=== PATIENT | male | born 1945 | race Caucasian/White ===

== ENCOUNTER → 2017-04-30 | Outpatient (REF) | payer MEDICARE ==
[2017-04-30 17:28] LABS: CALCIUM LEVEL 8.9 MG/DL (8.8-10.2); CREATININE FOR GFR 1.31 MG/DL (0.70-1.30); GLOMERULAR FILTRATION RATE 56.9 (>42); POTASSIUM SERUM 4.2 MEQ/L (3.5-5.1)
== END ==
LOC: M SFHCCLAY 12:26
PROVIDERS: ATTEND Family Medicine
DX: I10 Essential (primary) hypertension (principal)
CPT/HCPCS: 80048; 80061; 84460; G0463

== ENCOUNTER → 2018-04-30 | Outpatient (REF) | payer MEDICARE | LOC: M SFHCCLAY 09:09 | DX: E78.2 Mixed hyperlipidemia (principal); I10 Essential (primary) hypertension; R73.01 Impaired fasting glucose; Z53.8 Procedure and treatment not carried out for other reasons ==

== ENCOUNTER → 2018-05-01 | Outpatient (REF) | payer MEDICARE ==
[2018-05-01 12:03] LABS: ALBUMIN 3.7 GM/DL (3.2-5.2); ALBUMIN/GLOBULIN RATIO 1.19 (1.00-1.93); ALKALINE PHOSPHATASE 53 U/L (45-117); ALT/SGPT 29 U/L (12-78); ANION GAP 7 MEQ/L (8-16); AST/SGOT 14 U/L (7-37); BILIRUBIN,TOTAL 0.9 MG/DL (0.2-1.0); BLOOD UREA NITROGEN 24 MG/DL (7-18); CALCIUM LEVEL 8.8 MG/DL (8.8-10.2); CARBON DIOXIDE LEVEL 28 MEQ/L (21-32); CHLORIDE LEVEL 105 MEQ/L (98-107); CHOLESTEROL LEVEL 168 MG/DL (<200); CHOLESTEROL RISK RATIO 3.111 (<5); CREATININE FOR GFR 1.38 MG/DL (0.70-1.30); GLOMERULAR FILTRATION RATE 53.5 (>42); GLUCOSE, FASTING 119 MG/DL (70-100); HDL CHOLESTEROL 54 MG/DL (>40); LDL CHOLESTEROL 95.2 MG/DL (<100); NON-HDL-C 114 MG/DL; POTASSIUM SERUM 4.6 MEQ/L (3.5-5.1); SODIUM LEVEL 140 MEQ/L (136-145); TOTAL PROTEIN 6.8 GM/DL (6.4-8.2); TRIGLYCERIDES LEVEL 94 MG/DL (<150)
[2018-05-01 12:31] LABS: ESTIMATED AVERAGE GLUCOSE 131 MG/DL (60-110); HEMOGLOBIN A1c 6.2 %
== END ==
LOC: M SFHCCLAY 07:27
DX: I10 Essential (primary) hypertension (principal); R73.01 Impaired fasting glucose (principal); E78.2 Mixed hyperlipidemia
CPT/HCPCS: 84443

== ENCOUNTER → 2018-11-06 | Outpatient (REF) | payer MEDICARE ==
[2018-11-06 12:08] LABS: CALCIUM LEVEL 8.6 MG/DL (8.8-10.2); CREATININE FOR GFR 1.33 MG/DL (0.70-1.30); GLOMERULAR FILTRATION RATE 55.8 (>42); POTASSIUM SERUM 4.8 MEQ/L (3.5-5.1)
== END ==
LOC: M SFHCCLAY 08:14
PROVIDERS: ATTEND Family Medicine
DX: I12.9 Hypertensive chronic kidney disease with stage 1 through stage 4 chronic kidney disease, or unspecified chronic kidney disease (principal)
CPT/HCPCS: 80048; G0463

== ENCOUNTER → 2018-11-20 | Outpatient (REF) | payer MEDICARE ==
[2018-11-20 19:30] LABS: HEMATOCRIT 46.4 % (42.0-52.0); HEMOGLOBIN 15.7 g/dl (13.5-17.5); MEAN CORPUSCULAR HEMOGLOBIN 32.6 pg (27.0-33.0); MEAN CORPUSCULAR HGB CONC 33.8 g/dl (32.0-36.5); MEAN CORPUSCULAR VOLUME 96.3 fl (80.0-96.0); PLATELET COUNT, AUTOMATED 211 10^3/uL (150-450); RED BLOOD COUNT 4.82 10^6/uL (4.30-6.10); WHITE BLOOD COUNT 6.6 10^3/uL (4.0-10.0)
[2018-11-20 20:00] LABS: CALCIUM LEVEL 8.5 MG/DL (8.8-10.2); CREATININE FOR GFR 1.49 MG/DL (0.70-1.30); GLOMERULAR FILTRATION RATE 48.9 (>42); POTASSIUM SERUM 4.3 MEQ/L (3.5-5.1)
== END ==
LOC: M LABDRAWC 19:02
PROVIDERS: ATTEND Internal Medicine Cardiovascular Disease
DX: I48.91 Unspecified atrial fibrillation (principal); I51.7 Cardiomegaly

== ENCOUNTER → 2019-05-08 | Outpatient (REF) | payer MEDICARE | LOC: M SFHCCLAY 07:15 | PROVIDERS: ATTEND Family Medicine | DX: R73.01 Impaired fasting glucose (principal); Z53.8 Procedure and treatment not carried out for other reasons ==

== ENCOUNTER → 2019-05-26 | Outpatient (REF) | payer MEDICARE ==
[2019-05-26 12:08] LABS: CALCIUM LEVEL 8.4 MG/DL (8.8-10.2); CREATININE FOR GFR 1.35 MG/DL (0.70-1.30); GLOMERULAR FILTRATION RATE 54.7 (>42); POTASSIUM SERUM 4.6 MEQ/L (3.5-5.1)
== END ==
LOC: M LABDRAWC 11:21
PROVIDERS: ATTEND Internal Medicine Cardiovascular Disease
DX: I50.9 Heart failure, unspecified (principal)

== ENCOUNTER → 2019-05-26 | Outpatient (REF) | payer MEDICARE ==
[2019-05-26 12:05] LABS: ALBUMIN 3.4 GM/DL (3.2-5.2); BILIRUBIN,TOTAL 1.1 MG/DL (0.2-1.0); CALCIUM LEVEL 8.3 MG/DL (8.8-10.2); CHOLESTEROL RISK RATIO 3.156 (<5); CREATININE FOR GFR 1.37 MG/DL (0.70-1.30); GLOMERULAR FILTRATION RATE 53.8 (>42); POTASSIUM SERUM 4.7 MEQ/L (3.5-5.1); TOTAL PROTEIN 6.4 GM/DL (6.4-8.2)
[2019-05-26 12:06] LABS: HEMOGLOBIN A1c 6.8 %
== END ==
LOC: M SFHCCLAY 07:15
PROVIDERS: ATTEND Family Medicine
DX: R73.01 Impaired fasting glucose (principal); I50.9 Heart failure, unspecified

== ENCOUNTER → 2019-11-12 | Outpatient (REF) | payer MEDICARE ==
[2019-11-12 12:39] LABS: CALCIUM LEVEL 9.1 MG/DL (8.8-10.2); CREATININE FOR GFR 1.42 MG/DL (0.70-1.30); GLOMERULAR FILTRATION RATE 51.6 (>42); POTASSIUM SERUM 4.1 MEQ/L (3.5-5.1); URIC ACID 5.2 MG/DL (3.5-7.2)
[2019-11-12 13:13] LABS: HEMOGLOBIN A1c 6.6 %
[2019-11-12 18:29] LABS: MALB URINE SIEMENS 41.3 MG/L; MAU/CREAT RATIO 18.1 MCG/MG (0.0-30.0)
== END ==
LOC: M SFHCCLAY 07:17
PROVIDERS: ATTEND Family Medicine
DX: E11.9 Type 2 diabetes mellitus without complications (principal); I12.9 Hypertensive chronic kidney disease with stage 1 through stage 4 chronic kidney disease, or unspecified chronic kidney disease; N18.3 Chronic kidney disease, stage 3 (moderate); E79.0 Hyperuricemia without signs of inflammatory arthritis and tophaceous disease

== ENCOUNTER → 2020-05-12 | Outpatient (REF) | payer MEDICARE ==
[~2020-05-12] MED LIST: CARV25TA PO; ENTR1TAB PO; ENTR1TAB4 PO; HYDR-3490 PO; OMEP1CAP73 PO; XARE10TA PO; ZYLO300T6 PO
[2020-05-12 11:41] LABS: HEMATOCRIT 45.8 % (42.0-52.0); HEMOGLOBIN 15.3 g/dl (13.5-17.5); MEAN CORPUSCULAR HEMOGLOBIN 32.1 pg (27.0-33.0); MEAN CORPUSCULAR HGB CONC 33.4 g/dl (32.0-36.5); PLATELET COUNT, AUTOMATED 215 10^3/uL (150-450); RED BLOOD COUNT 4.77 10^6/uL (4.30-6.10); WHITE BLOOD COUNT 5.9 10^3/uL (4.0-10.0)
[2020-05-12 12:08] LABS: ALBUMIN 3.6 GM/DL (3.2-5.2); BILIRUBIN,TOTAL 1.1 MG/DL (0.2-1.0); CALCIUM LEVEL 8.9 MG/DL (8.8-10.2); CHOLESTEROL RISK RATIO 4.615 (<5); CREATININE FOR GFR 1.31 MG/DL (0.70-1.30); GLOMERULAR FILTRATION RATE 56.5 (>42); PHOSPHORUS LEVEL 2.9 MG/DL (2.5-4.9); POTASSIUM SERUM 4.4 MEQ/L (3.5-5.1); TOTAL PROTEIN 6.8 GM/DL (6.4-8.2); URIC ACID 5.7 MG/DL (3.5-7.2)
== END ==
LOC: M SFHCCLAY 09:20
PROVIDERS: ATTEND Family Medicine
DX: I12.9 Hypertensive chronic kidney disease with stage 1 through stage 4 chronic kidney disease, or unspecified chronic kidney disease (principal); E11.9 Type 2 diabetes mellitus without complications; I48.11 Longstanding persistent atrial fibrillation

== ENCOUNTER 2020-07-07 05:55 | Day surgery (SDC) | payer MEDICARE ==
[~2020-07-07] VITALS: Ht 177.8 cm; Wt 82.6 kg
[~2020-07-07 05:55] MED LIST changes: -HYDR-3490 PO; +HYDR25TAB PO
[2020-07-07] MEDS ORDERED: ROCURONIUM BROMIDE 50 MG/5 ML VIAL As Ordered ONE ×2 (07:17→08:22)
[2020-07-07] MEDS ORDERED: propofoL 200 MG/20 ML VIAL As Ordered ONE (07:17)
[2020-07-07] MEDS ORDERED: ONDANSETRON 4MG/2ML VIAL As Ordered ONE ×2 (07:17→09:14)
[2020-07-07] MEDS ORDERED: LIDOCAINE 2% 100MG/5ML SDV (FOR ANES.) As Ordered ONE (07:17)
[2020-07-07] MEDS ORDERED: dexameTHASONE 4 MG/ML 1ML VIAL (J1100 PER 1MG) As Ordered ONE (07:17)
[2020-07-07] MEDS ORDERED: MIDAZOLAM INJ 2MG/2ML VIAL (J2250 PER 1MG) As Ordered ONE (07:18)
[2020-07-07] MEDS ORDERED: fentaNYL 250 MCG/5 ML INJECTION (J3010) As Ordered ONE (07:18)
[2020-07-07] MEDS ORDERED: BUPIVACAINE HCL 0.25% 30ML VIAL As Ordered ONE (07:40)
[2020-07-07] MEDS ORDERED: LIDOCAINE PRES-FREE 2% 10ML AMP As Ordered ONE (08:36)
[2020-07-07] MEDS ORDERED: ACETAMINOPHEN 1000MG 100ML IV BTL (OFIRMEV) (J0131 PER 10MG) As Ordered ONE (09:08)
[2020-07-07] MEDS ORDERED: SUGAMMADEX SODIUM 500 MG/5 ML VIAL (BRIDION) As Ordered ONE (09:11)
[2020-07-07] MEDS ORDERED: HYDROmorphone HCL 2 MG/ML 1ML VIAL (J1170) As Ordered ONE (09:12)
[2020-07-07] MEDS ORDERED: oxyCODONE 5MG TAB As Ordered ONE (10:10)
[2020-07-07] MEDS ORDERED: HYDROMORPHONE HCL 0.5 MG/ 0.5 ML SYRINGE (J1170 PER 1) IV PRN (10:15)
[2020-07-07] MEDS ORDERED: oxyCODONE 5MG TAB PO PRN (10:15)
[2020-07-07] MEDS ORDERED: NORCO, ANEXSIA 5/325MG TABLET (HYDROcodone/ACETAMINOPHEN) PO PRN (10:15)
[2020-07-07] MEDS ORDERED: fentaNYL 100 MCG/2 ML INJECTION (J3010) IV PRN (10:15)
[2020-07-07] MEDS ORDERED: METOCLOPRAMIDE INJ 10MG/2ML VIAL (J2765 PER 1) IV PRN (10:15)
[2020-07-07] MEDS ORDERED: ACETAMINOPHEN TAB 650MG DOSE (2X325MG) PO PRN (10:15)
[2020-07-07] MEDS ORDERED: ONDANSETRON 4MG/2ML VIAL IV PRN (10:15)
[2020-07-07] MEDS ORDERED: MEPERIDINE INJ 25 MG/ML VIAL (J2175) IV PRN (10:15)
[2020-07-07] MEDS ORDERED: LR 1,000 ML IV SCH (10:15)
[2020-07-07 12:56] VITALS: BP 106/55
--- NOTE | 2020-08-26 08:33 | RO ---
DATE OF OPERATION: 07/07/2020 PREOPERATIVE DIAGNOSIS: Left inguinal hernia. POSTOPERATIVE DIAGNOSIS: Indirect left inguinal hernia. PROCEDURE: Robotic-assisted laparoscopic left inguinal hernia repair with ProGrip mesh. The mesh utilized was [employer] ProGrip reference code [id number] and lot number [id number]. SURGEON: Franc Miller MD HAZMAT CDL A DRIVER: Daya Cortez, whose assistance was necessary in general management of the robot, insertion and removal of instruments, passage of sutures and the mesh, and closure of the incisions. ANESTHESIA: General. INDICATIONS FOR PROCEDURE: The patient is a 75-year-old man who presented with a lump in the left inguinal area. Examination confirmed a reducible left inguinal hernia. This has recently become more uncomfortable and larger, and he is now for repair. OPERATIVE PROCEDURE: The patient was brought to the operating room and placed on the table in a supine position. He was placed under general endotracheal anesthesia. The patients abdomen, groins, and genitalia were prepped and draped in a sterile fashion. A site was selected for the initial entry in the upper abdomen several centimeters above the umbilicus along the midline. 0.25% Marcaine was infiltrated at each of the trocar sites as needed. A short transverse incision was made and a Veress needle was inserted. After a positive hanging drop test, the abdomen was insufflated with carbon dioxide gas without difficulty. An 8-mm robotic port was placed over a 5-mm scope and advanced through the abdominal wall without difficulty. Initial examination with the laparoscope revealed a minimal amount of blood-stained fluid down in the pelvis. He had a few punctate bleeding points down in the pelvis as well as some adhesions in the right lower quadrant where it appeared that part of the right colon was adherent to the anterior abdominal wall. There was no evidence of any injury from the Veress needle and I suspect the bleeding came from spontaneous lysis of some adhesions related to the insufflation. The patient was noted to have a hernia in the left lower quadrant. A second and third 8-mm port was placed in the right upper quadrant and left upper quadrant t about the same level as the initial trocar entry. The patient was then tilted to approximately 15 degrees of Trendelenburg position. The [employer] patient cart was brought into position and docked to the endoscope port. Targeting took place in the left pelvis. The additional robotic arms were docked. Forced bipolar and cauterizing scissors were inserted. I then moved to the control console to proceed with the operation. Inspection revealed that there was a definite indirect left inguinal hernia of moderate size. There were no contents adherent at this time. I began by creating a peritoneal flap beginning at the medial umbilical ligament approximately 5 cm superior to the evident defect and carrying this lateral and then inferiorly toward the anterosuperior iliac spine. The flap was developed using a combination of blunt and sharp, and cautery dissection. The hernia sac was peeled away from the underlying cord structures and invaginated. A single small defect was created in the peritoneum in freeing this hernia sac. Once the preperitoneal space was adequately developed, a piece of ProGrip mesh as identified earlier was trimmed slightly at the corners and inserted into the abdomen. This was placed into the preperitoneal space and unfolded, and the adherent side was pressed gently into the underlying soft tissues. The mesh had been carefully centered over the hernia defect. This nicely covered the inguinal floor. The peritoneal flap was then closed with a running suture of 2-0 absorbable V-Loc. The small defect in the peritoneum was closed with a 2-0 Vicryl. As the closure took place, the patient was gradually returned to a flat position and the intraabdominal pressure was decreased. The patient tolerated the procedure well without apparent complication. The instruments were removed and the robot was undocked and withdrawn. The trocars were used to deflate the abdomen and these were then removed. It was noted that he had some insufflation of gas into the lower abdominal wall. The incisions were then closed by Daya Cortez using buried 4-0 Vicryl and Steri-Strips. Light dressings were applied. The patient tolerated the procedure well without apparent complication. He was awakened in the operating room, extubated, and moved to the recovery room in stable condition. DEVI
== END 2020-07-07 13:00 | disposition home or self-care (01) ==
LOC: M SDC 05:55
PROVIDERS: ATTEND Surgery
DX: K40.90 Unilateral inguinal hernia, without obstruction or gangrene, not specified as recurrent (principal); K66.0 Peritoneal adhesions (postprocedural) (postinfection); I13.0 Hypertensive heart and chronic kidney disease with heart failure and stage 1 through stage 4 chronic kidney disease, or unspecified chronic kidney disease; I48.91 Unspecified atrial fibrillation; I50.22 Chronic systolic (congestive) heart failure; N18.3 Chronic kidney disease, stage 3 (moderate); E11.22 Type 2 diabetes mellitus with diabetic chronic kidney disease; I44.7 Left bundle-branch block, unspecified; K21.9 Gastro-esophageal reflux disease without esophagitis; Z79.899 Other long term (current) drug therapy; Z79.01 Long term (current) use of anticoagulants
CPT/HCPCS: 49650; C1781; J0131; J1100; J1170; J2250; J2405; J3010

== ENCOUNTER → 2020-12-20 | Outpatient (REF) | payer MEDICARE ==
[2020-12-20 12:36] LABS: ALBUMIN 3.8 GM/DL (3.2-5.2); BILIRUBIN,TOTAL 1.4 MG/DL (0.2-1.0); CALCIUM LEVEL 9.2 MG/DL (8.8-10.2); CHOLESTEROL RISK RATIO 2.687 (<5); CREATININE FOR GFR 1.42 MG/DL (0.70-1.30); GLOMERULAR FILTRATION RATE 51.5 (>42); POTASSIUM SERUM 4.1 MEQ/L (3.5-5.1); TOTAL PROTEIN 6.7 GM/DL (6.4-8.2)
[2020-12-20 13:51] LABS: HEMOGLOBIN A1c 6.4 %
== END ==
LOC: M SFHCCLAY 07:30
PROVIDERS: ATTEND Family Medicine
DX: E78.2 Mixed hyperlipidemia (principal); E11.9 Type 2 diabetes mellitus without complications; I50.22 Chronic systolic (congestive) heart failure

== ENCOUNTER → 2021-05-16 | Outpatient (REF) | payer MEDICARE ==
[~2021-05-16] MED LIST changes: +HYDR-3490 PO; -HYDR25TAB PO
[2021-05-16 16:32] LABS: CALCIUM LEVEL 9.2 MG/DL (8.8-10.2); CREATININE FOR GFR 1.33 MG/DL (0.70-1.30); GLOMERULAR FILTRATION RATE 55.4 (>42); POTASSIUM SERUM 4.3 MEQ/L (3.5-5.1)
[2021-05-16 16:35] LABS: HEMOGLOBIN A1c 6.4 %
== END ==
LOC: M SFHCCLAY 11:04
PROVIDERS: ATTEND Family Medicine
DX: I50.22 Chronic systolic (congestive) heart failure (principal); I48.11 Longstanding persistent atrial fibrillation; E11.9 Type 2 diabetes mellitus without complications
CPT/HCPCS: 80048; 83036; G0463

== ENCOUNTER → 2021-06-22 | Outpatient (REF) | payer MEDICARE ==
[2021-06-22 12:09] LABS: HEMATOCRIT 44.9 % (42.0-52.0); HEMOGLOBIN 15.3 g/dl (13.5-17.5); MEAN CORPUSCULAR HEMOGLOBIN 33.3 pg (27.0-33.0); MEAN CORPUSCULAR HGB CONC 34.1 g/dl (32.0-36.5); MEAN CORPUSCULAR VOLUME 97.8 fl (80.0-96.0); PLATELET COUNT, AUTOMATED 216 10^3/uL (150-450); RED BLOOD COUNT 4.59 10^6/uL (4.30-6.10); WHITE BLOOD COUNT 6.7 10^3/uL (4.0-10.0)
== END ==
LOC: M LABDRAWC 11:32
PROVIDERS: ATTEND Nurse Practitioner Family
DX: I48.91 Unspecified atrial fibrillation (principal)

== ENCOUNTER → 2021-11-15 | Outpatient (REF) | payer MEDICARE ==
[2021-11-15 12:05] LABS: HEMOGLOBIN A1c 6.6 %
[2021-11-15 12:14] LABS: ALBUMIN 3.8 GM/DL (3.2-5.2); BILIRUBIN,TOTAL 1.1 MG/DL (0.2-1.0); CALCIUM LEVEL 8.7 MG/DL (8.8-10.2); CREATININE FOR GFR 1.37 MG/DL (0.70-1.30); GLOMERULAR FILTRATION RATE 53.5 (>42); POTASSIUM SERUM 4.3 MEQ/L (3.5-5.1); TOTAL PROTEIN 6.7 GM/DL (6.4-8.2)
[2021-11-15 15:42] LABS: APPEARANCE, URINE HAZY (CLEAR); BACTERIA, URINE AUTO NEGATIVE (NEGATIVE); BILIRUBIN, URINE AUTO NEGATIVE (NEGATIVE); BLOOD, URINE BLOOD NEGATIVE (NEGATIVE); COLOR, URINE YELLOW (YELLOW); GLUCOSE, URINE (UA) AUTO NEGATIVE (NEGATIVE); KETONE, URINE AUTO NEGATIVE (NEGATIVE); LEUKOCYTE ESTERASE, URINE AUTO 1+ (NEGATIVE); MUCUS, URINE SMALL (NEGATIVE); NITRITE, URINE AUTO NEGATIVE (NEGATIVE); PROTEIN, URINE AUTO NEGATIVE (NEGATIVE); RBC, URINE AUTO 1 /HPF (0-3); SPECIFIC GRAVITY URINE AUTO 1.016 (1.002-1.035); SQUAMOUS EPITHELIAL CELL UR AU 2 /HPF (0-6); UROBILINOGEN, URINE AUTO 0.2 mg/dL (0.0-2.0); WBC, URINE AUTO 2 /HPF (0-3)
[2021-11-15 16:34] LABS: MALB URINE SIEMENS 57.1 MG/L; MAU/CREAT RATIO 40.4 MCG/MG (0.0-30.0)
== END ==
LOC: M SFHCCLAY 09:12
PROVIDERS: ATTEND Family Medicine
DX: I12.9 Hypertensive chronic kidney disease with stage 1 through stage 4 chronic kidney disease, or unspecified chronic kidney disease (principal); E11.9 Type 2 diabetes mellitus without complications
CPT/HCPCS: 80053; 81001; 82043; 83036; G0463

== ENCOUNTER → 2022-11-15 | Outpatient (REF) | payer MEDICARE ==
[2022-11-15 12:37] LABS: ALBUMIN 3.7 G/DL (3.2-5.2); BILIRUBIN,TOTAL 1.8 MG/DL (0.3-1.2); CALCIUM LEVEL 8.9 MG/DL (8.3-10.6); CHOLESTEROL RISK RATIO 2.49 (<5); CREATININE FOR GFR 1.7 MG/DL (0.70-1.30); GLOMERULAR FILTRATION RATE 41.6 (>42); HDL CHOLESTEROL 47.3 MG/DL (>40); LDL CHOLESTEROL 55.7 MG/DL (<100); POTASSIUM SERUM 4.5 MMOL/L (3.5-5.1); TOTAL PROTEIN 6.4 G/DL (5.7-8.2)
[2022-11-15 12:57] LABS: HEMOGLOBIN A1c 6.3 % (4.0-6.0)
[2022-11-15 17:11] LABS: APPEARANCE, URINE MANUAL CLEAR (CLEAR); COLOR, URINE MANUAL YELLOW (YELLOW)
[2022-11-15 17:13] LABS: BILIRUBIN, URINE MANUAL NEGATIVE (NEGATIVE); BLOOD URINE MANUAL NEGATIVE (NEGATIVE); GLUCOSE, URINE (UA) MANUAL NEGATIVE (NEGATIVE); KETONE, URINE MANUAL NEGATIVE (NEGATIVE); LEUKOCYTE ESTERASE, URINE MAN POSITIVE (NEGATIVE); NITRITE, URINE MANUAL NEGATIVE (NEGATIVE); PROTEIN, URINE MANUAL NEGATIVE (NEGATIVE); UROBILINOGEN, URINE MANUAL NORMAL (NORMAL)
[2022-11-15 17:35] LABS: CREATININE, URINE 239.3 MG/DL; MAU/CREAT RATIO 19.6 MCG/MG (0.0-30.0)
[2022-11-15 19:24] LABS: BACTERIA, URINE SMALL AMOUNT; MUCUS, URINE SMALL AMOUNT (NEGATIVE); RBC, URINE 0-1 /hpf (0-3); SQUAMOUS EPITHELIAL CELL URINE SMALL AMOUNT /hpf (SMALL AMT)
== END ==
LOC: M SFHCCLAY 08:35
PROVIDERS: ATTEND Family Medicine
DX: E11.9 Type 2 diabetes mellitus without complications (principal); I12.9 Hypertensive chronic kidney disease with stage 1 through stage 4 chronic kidney disease, or unspecified chronic kidney disease; I50.22 Chronic systolic (congestive) heart failure; E78.2 Mixed hyperlipidemia

== ENCOUNTER → 2023-05-16 | Outpatient (REF) | payer MEDICARE ==
[2023-05-16 12:19] LABS: ALBUMIN 3.7 G/DL (3.2-5.2); BILIRUBIN,TOTAL 1.7 MG/DL (0.3-1.2); CALCIUM LEVEL 9.5 MG/DL (8.3-10.6); CREATININE FOR GFR 1.26 MG/DL (0.70-1.30); GLOMERULAR FILTRATION RATE 58.6 (>35); POTASSIUM SERUM 4.1 MMOL/L (3.5-5.1); TOTAL PROTEIN 6.4 G/DL (5.7-8.2)
[2023-05-16 12:39] LABS: HEMOGLOBIN A1c 6.7 % (4.0-6.0)
== END ==
LOC: M SFHCCLAY 08:01
PROVIDERS: ATTEND Family Medicine
DX: I48.11 Longstanding persistent atrial fibrillation (principal); E11.9 Type 2 diabetes mellitus without complications

== ENCOUNTER → 2023-11-14 | Outpatient (REF) | payer MEDICARE ==
[2023-11-14 18:31] LABS: HEMATOCRIT 44.2 % (42.0-52.0); HEMOGLOBIN 14.8 g/dl (13.5-17.5); MEAN CORPUSCULAR HEMOGLOBIN 33.7 pg (27.0-33.0); MEAN CORPUSCULAR HGB CONC 33.5 g/dl (32.0-36.5); MEAN CORPUSCULAR VOLUME 100.7 fl (80.0-96.0); PLATELET COUNT, AUTOMATED 210 10^3/uL (150-450); RED BLOOD COUNT 4.39 10^6/uL (4.30-6.10); WHITE BLOOD COUNT 6.6 10^3/uL (4.0-10.0)
[2023-11-14 18:59] LABS: CHOLESTEROL RISK RATIO 2.58 (<5); HDL CHOLESTEROL 42.1 MG/DL (>40); LDL CHOLESTEROL 46.3 MG/DL (<100); NON-HDL-C 66.9 MG/DL
== END ==
LOC: M LABDRAWC 17:10
PROVIDERS: ATTEND Nurse Practitioner Family
DX: I48.11 Longstanding persistent atrial fibrillation (principal); E78.00 Pure hypercholesterolemia, unspecified

== ENCOUNTER → 2024-05-14 | Outpatient (REF) | payer MEDICARE ==
[2024-05-14 13:00] LABS: HEMOGLOBIN A1c 6.6 % (4.0-6.0)
[2024-05-14 13:01] LABS: ALBUMIN 3.8 G/DL (3.2-5.2); BILIRUBIN,TOTAL 1.8 MG/DL (0.3-1.2); CALCIUM LEVEL 8.7 MG/DL (8.3-10.6); CHOLESTEROL RISK RATIO 2.41 (<5); CREATININE FOR GFR 1.3 MG/DL (0.70-1.30); GLOMERULAR FILTRATION RATE 56.4 (>35); HDL CHOLESTEROL 50.1 MG/DL (>40); LDL CHOLESTEROL 57.7 MG/DL (<100); NON-HDL-C 70.9 MG/DL; POTASSIUM SERUM 4.4 MMOL/L (3.5-5.1); TOTAL PROTEIN 6.5 G/DL (5.7-8.2)
[2024-05-14 13:02] LABS: CREATININE, URINE 135.2 MG/DL; MAU/CREAT RATIO 20.7 MCG/MG (0.0-30.0)
== END ==
LOC: M SFHCCLAY 07:40
PROVIDERS: ATTEND Family Medicine
DX: E11.9 Type 2 diabetes mellitus without complications (principal); E78.2 Mixed hyperlipidemia; I50.22 Chronic systolic (congestive) heart failure; I12.9 Hypertensive chronic kidney disease with stage 1 through stage 4 chronic kidney disease, or unspecified chronic kidney disease

== ENCOUNTER → 2024-10-30 | Outpatient (REF) | payer MEDICARE ==
[2024-10-30 12:38] LABS: HEMOGLOBIN A1c 6.6 % (4.0-6.0)
[2024-10-30 12:50] LABS: ALBUMIN 3.7 G/DL (3.2-5.2); ALKALINE PHOSPHATASE 63 U/L (40-129); ALT/SGPT 23 U/L (7.0-40); AST/SGOT 18 U/L (<34); BILIRUBIN,TOTAL 1.5 MG/DL (0.3-1.2); BLOOD UREA NITROGEN 27 MG/DL (9-23); CARBON DIOXIDE LEVEL 29 MMOL/L (20-31); CHLORIDE LEVEL 104 MMOL/L (98-107); CHOLESTEROL LEVEL 122 MG/DL (<200); CHOLESTEROL RISK RATIO 2.56 (<5); CREATININE FOR GFR 1.14 MG/DL (0.70-1.30); GLOMERULAR FILTRATION RATE > 60.0 (>35); GLUCOSE, FASTING 156 MG/DL (74-106); HDL CHOLESTEROL 47.6 MG/DL (>40); LDL CHOLESTEROL 57.2 MG/DL (<100); NON-HDL-C 74.4 MG/DL; POTASSIUM SERUM 4.3 MMOL/L (3.5-5.1); SODIUM LEVEL 139 MMOL/L (136-145); TOTAL PROTEIN 6.7 G/DL (5.7-8.2); TRIGLYCERIDES LEVEL 86 MG/DL (<150)
[2024-10-30 12:53] LABS: FREE T4 1.14 NG/DL (0.89-1.76); THYROID STIMULATING HORMONE 0.638 uIU/ML (0.55-4.78)
== END ==
LOC: M SFHCCLAY 08:52
PROVIDERS: ATTEND Nurse Practitioner Family
DX: I13.0 Hypertensive heart and chronic kidney disease with heart failure and stage 1 through stage 4 chronic kidney disease, or unspecified chronic kidney disease (principal); E78.2 Mixed hyperlipidemia; E11.9 Type 2 diabetes mellitus without complications; I48.11 Longstanding persistent atrial fibrillation

== ENCOUNTER → 2025-06-23 | Outpatient (REF) | payer MEDICARE ==
[2025-06-23 13:11] LABS: ALT/SGPT 31.0 U/L (7.0-40); AST/SGOT 29.0 U/L (<34); CALCIUM LEVEL 9.5 MG/DL (8.3-10.6); CARBON DIOXIDE LEVEL 23.0 MMOL/L (20-31); CHLORIDE LEVEL 102.0 MMOL/L (98-107); CREATININE FOR GFR 1.65 MG/DL (0.70-1.30); GLOMERULAR FILTRATION RATE 41.2 (>35); PLATELET COUNT, AUTOMATED 127 10^3/uL (150-450); POTASSIUM SERUM 4.3 MMOL/L (3.5-5.1); SODIUM LEVEL 141.0 MMOL/L (136-145)
== END ==
LOC: M LABDRAWC 12:28
PROVIDERS: ATTEND Nurse Practitioner Family
DX: I48.21 Permanent atrial fibrillation (principal); I50.42 Chronic combined systolic (congestive) and diastolic (congestive) heart failure

== ENCOUNTER 2025-08-05 10:52 | Inpatient (IN) | payer MEDICARE ==
[~2025-08-05] VITALS: Ht 172.7 cm; Wt 74.6 kg
[2025-08-05 11:20] VITALS: TEMP 96.8
[2025-08-05 11:38] LABS: VENOUS BASE EXCESS -5.8 (-2.0-2.0); VENOUS HCO3 20.4 MMOL/L (23.0-27.0); VENOUS O2 SATURATION 35.6 % (60.0-80.0); VENOUS PARTIAL PRESSURE CO2 42.6 mmHg (38.0-50.0); VENOUS PARTIAL PRESSURE O2 25.1 mmHg (30.0-50.0); VENOUS PH 7.298 UNITS (7.330-7.430); VENOUS STANDARD HCO3 18.3 MMOL/L; VENOUS TOTAL CO2 21.7 MMOL/L (24.0-28.0)
[2025-08-05 11:56] LABS: BASO # 0.1 10^3/uL (0.0-0.2); BASO % 0.8 % (0.0-1.0); EOS # 0.1 10^3/uL (0.0-0.5); EOS % 2.0 % (0.0-3.0); LYMPH # 1.3 10^3/uL (1.5-5.0); LYMPH % 19.8 % (24.0-44.0); MONO # 0.6 10^3/uL (0.0-0.8); MONO % 9.3 % (2.0-8.0); NEUTROPHILS # 4.4 10^3/uL (1.5-8.5); NEUTROPHILS % 67.8 % (36.0-66.0); PLATELET COUNT, AUTOMATED 156 10^3/uL (150-450)
[2025-08-05] MEDS: DIGOXIN INJ 0.5 MG/2 ML AMP IV STA ×2 (12:06→13:45)
[2025-08-05 12:11] LABS: INR 2.21
[2025-08-05 12:27] LABS: ALT/SGPT 31 U/L (7.0-40); AST/SGOT 27 U/L (<34); CALCIUM LEVEL 9.3 MG/DL (8.3-10.6); CARBON DIOXIDE LEVEL 23 MMOL/L (20-31); CHLORIDE LEVEL 100 MMOL/L (98-107); CREATININE FOR GFR 1.68 MG/DL (0.70-1.30); GLOMERULAR FILTRATION RATE 40.3 (>35); MAGNESIUM LEVEL 1.8 MG/DL (1.8-2.4); POTASSIUM SERUM 4.0 MMOL/L (3.5-5.1); SODIUM LEVEL 138 MMOL/L (136-145)
[2025-08-05 12:28] LABS: THYROXINE (T4) 6.1 UG/DL (4.5-10.9)
[2025-08-05] MEDS ORDERED: ALLO300T2 PO (13:13)
[2025-08-05] MEDS ORDERED: METO100T5 PO (13:14)
[2025-08-05] MEDS ORDERED: DIGO0.123 PO (13:14)
[2025-08-05] MEDS ORDERED: TORS20TA2 PO (13:14)
[2025-08-05] MEDS ORDERED: CARV12.5 PO (13:14)
[2025-08-05] MEDS ORDERED: ATOR1TAB19 PO (13:14)
[2025-08-05] MEDS ORDERED: XARE15TA PO (13:15)
[2025-08-05] MEDS ORDERED: HOME MED LIST COMPLETE! XX SCH (13:20)
[2025-08-05] MEDS ORDERED: ISOVUE-370 76% 100 ML VIAL As Ordered ONE (14:48)
[2025-08-05 16:48] LABS: C REACTIVE PROTEIN QUANTITATIV 1.22 MG/DL (<1.0)
[2025-08-05] MEDS: MIDODRINE 5 MG TAB PO ONE (17:01)
[2025-08-05] MEDS: NS (Normal Saline) 0.9% 1,000 ML IV ONE (17:02)
[2025-08-05] MEDS: RIVAROXABAN 15MG TAB PO SCH (17:57)
[2025-08-05] MEDS: METOPROLOL 5 MG/5 ML VIAL IV SCH (18:32)
[2025-08-05] MEDS ORDERED: GLUCOSE 4 GM CHEW PO PRN (18:55)
[2025-08-05] MEDS ORDERED: DEXTROSE 50% 50 ML SYRINGE IV PRN (18:55)
[2025-08-05] MEDS ORDERED: GLUCAGON INJ 1 MG VIAL SC PRN (18:55)
[2025-08-05 19:26] LABS: CK-MB VALUE MASS 4.2 NG/ML (<3.6)
[2025-08-05 19:27] LABS: DIGOXIN LEVEL < 0.1 NG/ML (0.8-2.0)
[2025-08-05] MEDS: NS 500 ML IV ONE ×2 (19:30→23:09)
[2025-08-05 19:33] LABS: CPK CREATINE PHOSPHOKINASE 123 U/L (46-171); MB/CK RELATIVE INDEX 3.41 (< OR =4)
[2025-08-05 20:15] LABS: ESTIMATED AVERAGE GLUCOSE 177.0 MG/DL (60-110)
[2025-08-05] MEDS: INSULIN LISPRO (NovoLOG) PER UNIT SC SCH (20:48)
[2025-08-05] MEDS: ATORVASTATIN 10 MG TAB PO SCH (20:53)
[2025-08-05] MEDS: SUCRALFATE 1 GM TAB PO SCH (20:53)
[2025-08-05] MEDS ORDERED: METOPROLOL TARTRATE 100 MG TAB PO SCH (21:00)
[2025-08-06 01:35] LABS: CK-MB VALUE MASS 4.7 NG/ML (<3.6)
[2025-08-06 01:39] LABS: CPK CREATINE PHOSPHOKINASE 113.0 U/L (46-171); MB/CK RELATIVE INDEX 4.15 (< OR =4)
[2025-08-06] MEDS: INSULIN LISPRO (NovoLOG) PER UNIT SC SCH (07:30)
[2025-08-06 08:10] VITALS: BP 144/98
[2025-08-06] MEDS: DIGOXIN INJ 0.5 MG/2 ML AMP IV STA (08:10)
[2025-08-06] MEDS: METOPROLOL SUCC. 100 MG *XL* TAB PO ONE (08:10)
[2025-08-06] MEDS ORDERED: OMEPRAZOLE 20MG CAP PO SCH (09:00)
[2025-08-06] MEDS: PANTOPRAZOLE 40MG TAB PO SCH (09:52)
[2025-08-06 15:16] VITALS: BP 139/74
[2025-08-06] MEDS ORDERED: CARD40TA PO (15:27)
[2025-08-06 15:30] VITALS: O2SAT 98
[2025-08-06 15:58] LABS: CK-MB VALUE MASS 5.7 NG/ML (<3.6)
[2025-08-06 16:00] LABS: CPK CREATINE PHOSPHOKINASE 152.0 U/L (46-171); DIGOXIN LEVEL 1.3 NG/ML (0.8-2.0); MB/CK RELATIVE INDEX 3.75 (< OR =4)
== END 2025-08-06 15:30 | disposition left against medical advice (07) | DRG 309 ==
LOC: M ED 10:52 → UNDOADMOB 10:53 → M ED INP 10:53 → OBSVTOIN 18:52 → INTOOBSV 18:52 → M ED INP 18:52 → UNDODISOB 08-06 15:41
PROVIDERS: ADMIT General Practice; ATTEND General Practice
PROC: B246ZZZ Ultrasonography of Right and Left Heart (ICD-10-PCS; principal; 2025-08-06)
DX: I48.91 Unspecified atrial fibrillation (principal); I13.0 Hypertensive heart and chronic kidney disease with heart failure and stage 1 through stage 4 chronic kidney disease, or unspecified chronic kidney disease; R63.4 Abnormal weight loss; N18.9 Chronic kidney disease, unspecified; E78.5 Hyperlipidemia, unspecified; E11.22 Type 2 diabetes mellitus with diabetic chronic kidney disease; K21.9 Gastro-esophageal reflux disease without esophagitis; I50.9 Heart failure, unspecified; M10.9 Gout, unspecified; R53.81 Other malaise; R42 Dizziness and giddiness; R06.02 Shortness of breath; Z66 Do not resuscitate; Z82.49 Family history of ischemic heart disease and other diseases of the circulatory system; Z80.0 Family history of malignant neoplasm of digestive organs; Z82.3 Family history of stroke; Z79.899 Other long term (current) drug therapy; Z79.01 Long term (current) use of anticoagulants

== ENCOUNTER → 2025-08-11 | Outpatient (REF) | payer MEDICARE ==
[~2025-08-11] MED LIST changes: +ALLO300T2 PO; +ATOR1TAB19 PO; +CARD40TA PO; +CARV12.5 PO; +DIGO0.123 PO; +METO100T5 PO; +TORS20TA2 PO; +XARE15TA PO
[2025-08-11 19:11] LABS: BASO # 0.1 10^3/uL (0.0-0.2); BASO % 0.9 % (0.0-1.0); EOS # 0.1 10^3/uL (0.0-0.5); EOS % 2.0 % (0.0-3.0); LYMPH # 0.8 10^3/uL (1.5-5.0); LYMPH % 15.1 % (24.0-44.0); MONO # 0.6 10^3/uL (0.0-0.8); MONO % 10.4 % (2.0-8.0); NEUTROPHILS # 4.0 10^3/uL (1.5-8.5); NEUTROPHILS % 71.4 % (36.0-66.0); PLATELET COUNT, AUTOMATED 152 10^3/uL (150-450)
[2025-08-11 19:38] LABS: FREE T4 1.3 NG/DL (0.89-1.76)
[2025-08-11 19:44] LABS: ALT/SGPT 26.0 U/L (7.0-40); AST/SGOT 24.0 U/L (<34); CALCIUM LEVEL 8.5 MG/DL (8.3-10.6); CARBON DIOXIDE LEVEL 29.0 MMOL/L (20-31); CHLORIDE LEVEL 102.0 MMOL/L (98-107); CHOLESTEROL LEVEL 82.0 MG/DL (<200); CHOLESTEROL RISK RATIO 2.89 (<5); CREATININE FOR GFR 1.21 MG/DL (0.70-1.30); GLOMERULAR FILTRATION RATE 59.8 (>35); LDL CHOLESTEROL 37.3 MG/DL (<100); MAGNESIUM LEVEL 1.5 MG/DL (1.8-2.4); NON-HDL-C 53.7 MG/DL; POTASSIUM SERUM 3.4 MMOL/L (3.5-5.1); SODIUM LEVEL 139.0 MMOL/L (136-145); TRIGLYCERIDES LEVEL 82.0 MG/DL (<150)
[2025-08-11 19:58] LABS: ESTIMATED AVERAGE GLUCOSE 171.0 MG/DL (60-110)
== END ==
LOC: M SFHCCLAY 14:03
PROVIDERS: ATTEND Nurse Practitioner Family
DX: E11.9 Type 2 diabetes mellitus without complications (principal); I50.22 Chronic systolic (congestive) heart failure; I10 Essential (primary) hypertension; E78.2 Mixed hyperlipidemia; I12.9 Hypertensive chronic kidney disease with stage 1 through stage 4 chronic kidney disease, or unspecified chronic kidney disease; I48.11 Longstanding persistent atrial fibrillation

== ENCOUNTER → 2025-10-20 | Outpatient (REF) | payer MEDICARE ==
[2025-10-20 13:15] LABS: ALT/SGPT 16.0 U/L (7.0-40); AST/SGOT 17.0 U/L (<34); CALCIUM LEVEL 8.7 MG/DL (8.3-10.6); CARBON DIOXIDE LEVEL 29.0 MMOL/L (20-31); CHLORIDE LEVEL 98.0 MMOL/L (98-107); CHOLESTEROL LEVEL 97.0 MG/DL (<200); CHOLESTEROL RISK RATIO 3.23 (<5); CREATININE FOR GFR 1.12 MG/DL (0.70-1.30); GLOMERULAR FILTRATION RATE 65.6 (>35); LDL CHOLESTEROL 53.2 MG/DL (<100); NON-HDL-C 67.0 MG/DL; POTASSIUM SERUM 4.0 MMOL/L (3.5-5.1); SODIUM LEVEL 139.0 MMOL/L (136-145); TRIGLYCERIDES LEVEL 69.0 MG/DL (<150)
[2025-10-20 13:16] LABS: ESTIMATED AVERAGE GLUCOSE 171.0 MG/DL (60-110)
== END ==
LOC: M SFHCCLAY 08:43
PROVIDERS: ATTEND Nurse Practitioner Family
DX: E11.9 Type 2 diabetes mellitus without complications (principal); I50.22 Chronic systolic (congestive) heart failure; E78.2 Mixed hyperlipidemia; I12.9 Hypertensive chronic kidney disease with stage 1 through stage 4 chronic kidney disease, or unspecified chronic kidney disease; I48.11 Longstanding persistent atrial fibrillation